=== PATIENT | female | born 1945 | race Caucasian/White ===

== ENCOUNTER 2016-09-09 11:36 | Emergency (ER) | payer OTHER ==
[~2016-09-09] VITALS: Ht 162.6 cm; Wt 67.1 kg
[~2016-09-09 11:36] MED LIST: ATIVAN0.5 MG PO; FENTANYL25 MCG/HR TD; HYDROMORPHONE HY4 MG PO; LOPRESSOR 25MG25 MG PO; LOSARTAN POTASS1 TA1 PO; MEVACOR20 MG PO; VICODIN 5-3001 EACH PO; VITAMIN D31000 IU PO; XARELTO10 MG PO
[2016-09-09 11:40] VITALS: BP 142/93
--- NOTE | 2016-09-09 11:56 | ED GENERAL ADULT ---
History of Present Illness General Chief Complaint: Animal/Insect Bite Stated Complaint: INSECT BITE TO L ARM Source: patient Exam Limitations: no limitations Vital Signs & Intake/Output Vital Signs & Intake/Output Vital Signs Date Time Temp Pulse Resp B/P Pulse O2 O2 Flow FiO2 Ox Delivery Rate 09/09 1140 97.0 85 20 142/93 99 Room Air ED Intake and Output 09/10 0000 09/09 1200 Intake Total Output Total Balance Patient 148 lb Weight Allergies Coded Allergies: prochlorperazine (From COMPAZINE) ("REALLY BAD NERVOUSNESS" 09/09/16) Reconcile Medications Amlodipine Besylate 5 MG TABLET 1 TAB PO DAILY BP (Reported) Cholecalciferol (Vitamin D3) 1,000 IU TAB 1 TAB PO DAILY SUPPLEMENT (Reported ) Doxycycline Hyclate (Vibramycin) 100 MG CAPSULE 1 CAP PO BID PRN CELLULITIS Fentanyl 25 MCG/HR TDM 1 PATCH TD Q72 PAIN (Reported) FOR PAIN Triage Note: PT STATES SHE WOKE UP THIS MORNING WITH A BRUISE ON HER LEFT ARM. PT STATES "I DON'T KNOW IF IT'S A SPIDER BITE OR TICK BITE" Triage Nurses Notes Reviewed? yes Onset: Abrupt Duration: day(s): Timing: recent history HPI: 09/09/16 12 PM This is a [place] 71-year-old female presents to emergency department for an insect bite to the left proximal arm. The patient says she noticed a small dot there yesterday she's may have scratched it. It got progressively worse. There is no tick that was there. The onset of the symptoms were abrupt, the duration has been 24 hours, the severity is significant; as her symptoms required her to come to the emergency department for care. On physical exam she does have a abrasion that is honey colored and some surrounding erythema that is about the size of a quarter to the proximal aspect of her left arm. She denies chest pain fever or other complaints. she was treated with Vibramycin. She'll follow-up with her doctor on Monday. Past History Travel History Traveled to [place] past 21 day No Medical History Any Pertinent Medical History? see below for history Cardiovascular: hypertension Musculoskeletal: CHRONIC BACK PAIN Surgical History Surgical History: non-contributory Psychosocial History Who do you live with Spouse Services at Home Nursing, Physical Therapy What is your primary language Bulgarian Tobacco Use: Quit >30 days ago ETOH Use: denies use Illicit Drug Use: denies illicit drug use Family History Hx Contributory? No Review of Systems Review of Systems Constitutional: Denies: fever. EENTM: Reports: no symptoms. Respiratory: Denies: short of breath. Cardiovascular: Denies: chest pain. GI: Reports: no symptoms. Genitourinary: Reports: no symptoms. Musculoskeletal: Reports: see HPI. Skin: Reports: see HPI. Neurological/Psychological: Denies: headache. Hematologic/Endocrine: Reports: no symptoms. Physical Exam Physical Exam General Appearance: well developed/nourished, alert, awake, anxious, mild distress Head: atraumatic, normal appearance Eyes: Bilateral: normal appearance, PERRL, EOMI. Ears, Nose, Throat: normal ENT inspection Neck: normal inspection Respiratory: no respiratory distress Cardiovascular: regular rate/rhythm Peripheral Pulses: 4+ radial (L) Back: normal range of motion Extremities: no edema, tenderness Neurologic/Psych: no motor/sensory deficits, awake, alert, oriented x 3, normal gait, normal mood/affect Skin: rash Core Measures ACS in differential dx? No CVA/TIA Diagnosis: No Severe Sepsis Present: No Septic Shock Present: No Progress Differential Diagnoses I considered the following diagnoses in my evaluation of the patient: [ Lyme disease, cellulitis, abscess, infected abrasion, foreign body] Plan of Care: take Vibramycin as directed, follow up with her doctor on Monday Initial ED EKG: none Departure Departure Disposition: HOME OR SELF CARE Condition: Stable Clinical Impression Primary Impression: Cellulitis Secondary Impressions: Insect bite Referrals: LYNDA KLEIN MD (PCP/Family) Departure Forms: Customer Survey General Discharge Information Prescriptions: Current Visit Scripts Doxycycline Hyclate (Vibramycin) 1 CAP PO BID PRN CELLULITIS #20 CAP Critical Care Note Critical Care Note Critical Care Time: non-applicable
[2016-09-09] MEDS ORDERED: VIBRAMYCIN100 MG PO (11:59)
[2016-09-09] MEDS ORDERED: AMLODIPINE BESYL5 M1 PO (12:13)
== END 2016-09-09 12:21 ==
LOC: ERH 11:36
DX: S40.862A Insect bite (nonvenomous) of left upper arm, initial encounter (principal); L03.114 Cellulitis of left upper limb; W57.XXXA Bitten or stung by nonvenomous insect and other nonvenomous arthropods, initial encounter